=== PATIENT | male | born 1935 | race Asian ===

== ENCOUNTER 2018-11-01 19:31 | Emergency (ER) | payer SELFPAY ==
[~2018-11-01] VITALS: Ht 170.2 cm; Wt 61.4 kg
[2018-11-01] MEDS ORDERED: FENO160 PO (19:43)
[2018-11-01] MEDS ORDERED: LINA5TAB PO (19:43)
[2018-11-01] MEDS ORDERED: ATOR40TA28 PO (19:43)
[2018-11-01] MEDS ORDERED: GLIM4 PO (19:43)
[2018-11-01] MEDS ORDERED: PIOG15TA6 PO (19:43)
[2018-11-01] MEDS ORDERED: ASPI-1182 PO (19:43)
[2018-11-01] MEDS ORDERED: ACAR50TA11 PO (19:43)
[2018-11-01 19:49] LABS: GLUCOSE,POINT OF CARE 192 MG/DL (70-110)
[2018-11-01] MEDS ORDERED: TraMADol HCL 50 MG TABLET PO ONE (21:30)
[2018-11-01 22:24] LABS: BASOPHILS % (AUTO) 0.6 % (0.0-2.0); EOSINOPHILS % (AUTO) 5.1 % (1.0-6.0); HEMATOCRIT 32.4 % (41-53); HEMOGLOBIN 10.9 g/dL (13.5-17.5); LYMPHOCYTES # (AUTO) 1.5 K/uL (1.0-4.8); LYMPHOCYTES % (AUTO) 19.4 % (22.0-44.0); MEAN CORPUSCULAR HEMOGLOBIN 30.9 pg (26.0-34.0); MEAN CORPUSCULAR HGB CONC 33.6 G/dL (31.0-37.0); MEAN CORPUSCULAR VOLUME 92 fL (80-100); MONOCYTES # (AUTO) 0.6 K/uL (0.1-1.0); MONOCYTES % (AUTO) 7.8 % (2.0-9.0); NEUTROPHILS # (AUTO) 5.2 K/uL (1.8-7.7); NEUTROPHILS % (AUTO) 67.1 % (40.0-70.0); PLATELET COUNT (AUTO) 392 K/uL (150-450); RED BLOOD CELL COUNT(AUTO) 3.52 MIL/uL (4.50-5.90); RED CELL DISTRIBUTION WIDTH 13.5 % (11.5-14.5)
[2018-11-01 22:41] LABS: CALCIUM, TOTAL 9.2 mg/dL (8.8-10.5); CREATININE 1.83 mg/dL (0.60-1.30); POTASSIUM 4.1 mmol/L (3.5-5.1)
[2018-11-01 22:46] LABS: ALBUMIN 3.4 g/dL (3.4-5.0); BILIRUBIN,TOTAL 0.4 mg/dL (0.1-1.0); TOTAL PROTEIN, SERUM 7.4 g/dL (6.4-8.2)
[2018-11-01 23:05] LABS: APPEARANCE,URINE CLEAR (CLEAR); BILIRUBIN,URINE NEGATIVE (NEGATIVE); GLUCOSE, URINE (UA) NEGATIVE (NEGATIVE); KETONES,URINE NEGATIVE (NEGATIVE); LEUKOCYTE ESTERASE ,URINE NEGATIVE (NEGATIVE); NITRATE,URINE NEGATIVE (NEGATIVE); OCCULT BLOOD,URINE NEGATIVE (NEGATIVE); PROTEIN,URINE NEGATIVE (NEGATIVE); UROBILINOGEN,URINE 0.2 mg/dL (<=1.0)
[2018-11-01 23:31] VITALS: BP 132/71
== END 2018-11-01 23:50 | disposition home or self-care (01) ==
LOC: EMS 19:31
DX: M54.6 Pain in thoracic spine (principal); R30.9 Painful micturition, unspecified; E11.9 Type 2 diabetes mellitus without complications; I10 Essential (primary) hypertension; E78.00 Pure hypercholesterolemia, unspecified; Z79.82 Long term (current) use of aspirin
CPT/HCPCS: 74176; 93005

== ENCOUNTER 2025-03-19 18:35 | Emergency (ER) | payer OTHER ==
[~2025-03-19] VITALS: Ht 167.6 cm; Wt 54.5 kg
[~2025-03-19 18:35] MED LIST: ACAR50TA2 PO; ASPI-1444 PO; ATOR40TA28 PO; GLIM-8 PO; LINA5TAB PO; PIOG15TA6 PO; [UNRECOGNIZED DRUG - CODE] PO
[2025-03-19 18:41] VITALS: TEMP 100.2
[2025-03-19] MEDS ORDERED: ATOR40TA71 PO (18:41)
[2025-03-19] MEDS ORDERED: TIOT4MIS3 IH (18:41)
[2025-03-19] MEDS ORDERED: CYAN-53 PO (18:41)
[2025-03-19] MEDS ORDERED: PIOG15TA66 PO (18:41)
[2025-03-19] MEDS ORDERED: EMPA25TA3 PO (18:41)
[2025-03-19] MEDS ORDERED: TIRZ5PEN SQ (18:41)
[2025-03-19 18:48] LABS: COVID AG,FIA SOURCE NASAL SWAB
[2025-03-19] MEDS ORDERED: ACETAMINOPHEN 325 MG TABLET PO ONE (19:00)
[2025-03-19 19:08] LABS: SARS-COV2 (COVID) ANTIGEN,FIA Negative (Negative)
[2025-03-19 19:09] LABS: INFLUENZA TYPE A NEGATIVE FOR TYPE A (NEGATIVE); INFLUENZA TYPE B NEGATIVE FOR TYPE B (NEGATIVE)
[2025-03-19 19:11] LABS: PLATELET COUNT (AUTO) 242 K/uL (150-450); RED BLOOD CELL COUNT(AUTO) 4.37 MIL/uL (4.50-5.90); RED CELL DISTRIBUTION WIDTH 13.7 % (11.5-14.5); WHITE BLOOD COUNT (AUTO) 11.2 K/uL (4.5-11.0)
[2025-03-19] MEDS: SODIUM CHLORIDE 0.9% 1,000 ML IV ONE (19:16)
[2025-03-19 19:18] LABS: CALCIUM, TOTAL 8.1 mg/dL (8.8-10.5); CREATININE 1.25 mg/dL (0.60-1.30); GLOMERULAR FILTR. RATE CALC 55 mL/min (>60); GLUCOSE,RANDOM 178 mg/dL (70-110); SODIUM SERUM 130 mmol/L (136-145); UREA NITROGEN, BLOOD 16 mg/dL (7-18)
[2025-03-19 19:22] VITALS: BP 106/59; PULSE 126; RESP 22; O2SAT 91
[2025-03-19 19:27] LABS: LACTIC ACID 1.5 mmol/L (0.4-2.0); TROPONIN I-HIGH SENSITIVITY 15 ng/L (<76)
[2025-03-19 20:11] LABS: APPEARANCE,URINE CLEAR (CLEAR); GLUCOSE, URINE (UA) >=1000 mg/dL (NEGATIVE); LEUKOCYTE ESTERASE ,URINE NEGATIVE (NEGATIVE); NITRATE,URINE NEGATIVE (NEGATIVE); OCCULT BLOOD,URINE TRACE (NEGATIVE); SPECIFIC GRAVITIY, URINE 1.018 (1.003-1.030)
[2025-03-19] MEDS: CefTRIAXone 1 GM/DEXTROSE 50 ML IV ONE (20:22)
[2025-03-19 21:01] LABS: SQUAMOUS EPITHELIAL CELL,UR Rare /LPF (None Seen)
[2025-03-19] MEDS ORDERED: AZIT250T9 PO (21:05)
[2025-03-19] MEDS ORDERED: AMOX-457 PO (21:05)
== END 2025-03-19 21:37 | disposition home or self-care (01) ==
LOC: EMS 18:35
DX: J18.9 Pneumonia, unspecified organism (principal); E11.9 Type 2 diabetes mellitus without complications; E78.00 Pure hypercholesterolemia, unspecified; I10 Essential (primary) hypertension; Z79.899 Other long term (current) drug therapy; Z20.822 Contact with and (suspected) exposure to COVID-19
CPT/HCPCS: 99285; 96365; 71045; 96361; 87426; 80048; 81001; 82962; 83605; 83880; 84484; 85025; 87040; 87804; 36415; 93005; 84145; J0696; J7030

== ENCOUNTER 2025-04-04 05:42 | Emergency (ER) | payer OTHER ==
[~2025-04-04] VITALS: Ht 165.1 cm; Wt 50.9 kg
[~2025-04-04 05:42] MED LIST changes: -ACAR50TA2 PO; +AMOX-457 PO; -ASPI-1444 PO; -ATOR40TA28 PO; +ATOR40TA71 PO; +CYAN-53 PO; +EMPA25TA3 PO; -GLIM-8 PO; -LINA5TAB PO; -PIOG15TA6 PO; +PIOG15TA66 PO; +TIOT4MIS3 IH; +TIRZ5PEN SQ; -[UNRECOGNIZED DRUG - CODE] PO
[2025-04-04 05:50] VITALS: BP 87/65; PULSE 109; RESP 14; O2SAT 97
[2025-04-04 06:16] LABS: GLUCOMETER DEV NAME(LOC) ER.7; GLUCOSE,POINT OF CARE 153 MG/DL (70-110)
[2025-04-04 07:51] LABS: APPEARANCE,URINE CLEAR (CLEAR); GLUCOSE, URINE (UA) >=1000 mg/dL (NEGATIVE); LEUKOCYTE ESTERASE ,URINE NEGATIVE (NEGATIVE); NITRATE,URINE NEGATIVE (NEGATIVE); OCCULT BLOOD,URINE NEGATIVE (NEGATIVE); SPECIFIC GRAVITIY, URINE 1.010 (1.003-1.030)
[2025-04-04 08:02] LABS: SQUAMOUS EPITHELIAL CELL,UR Rare /LPF (None Seen)
[2025-04-04 08:29] LABS: PLATELET COUNT (AUTO) 328 K/uL (150-450); RED BLOOD CELL COUNT(AUTO) 4.29 MIL/uL (4.50-5.90); RED CELL DISTRIBUTION WIDTH 14.3 % (11.5-14.5); WHITE BLOOD COUNT (AUTO) 6.7 K/uL (4.5-11.0)
[2025-04-04 08:36] LABS: CALCIUM, TOTAL 8.5 mg/dL (8.8-10.5); CREATININE 1.27 mg/dL (0.60-1.30); GLOMERULAR FILTR. RATE CALC 54 mL/min (>60); GLUCOSE,RANDOM 147 mg/dL (70-110); SODIUM SERUM 134 mmol/L (136-145); UREA NITROGEN, BLOOD 20 mg/dL (7-18)
[2025-04-04 08:46] LABS: TROPONIN I-HIGH SENSITIVITY 9 ng/L (<76)
[2025-04-04] MEDS ORDERED: TAMS0.4C94 PO (09:53)
[2025-04-04] MEDS ORDERED: CIPR250T6 PO (09:53)
[2025-04-04] MEDS ORDERED: POLY17PO47 PO (09:53)
[2025-04-04] MEDS ORDERED: DOCU-119 PO (09:53)
== END 2025-04-04 10:25 | disposition home or self-care (01) ==
LOC: EMS 05:46
DX: N13.8 Other obstructive and reflux uropathy (principal); K56.41 Fecal impaction; R30.9 Painful micturition, unspecified; E11.9 Type 2 diabetes mellitus without complications; E78.00 Pure hypercholesterolemia, unspecified; I10 Essential (primary) hypertension; Z79.899 Other long term (current) drug therapy
CPT/HCPCS: 51702; 80048; 81001; 82962; 83690; 83880; 84484; 85025; 99284